=== PATIENT | female | born 1955 | race Caucasian/White ===

== ENCOUNTER → 2016-11-09 | Outpatient (CLI) | payer BC ==
[~2016-11-09] MED LIST: ASPIRIN325 MG PO; COREG 25MG TAB25 MG PO; GLUCOPHAGE 500500 MG PO; IMDUR ER TAB 3030 MG PO; INDAPAMIDE2.5 MG PO; LIPITOR TAB 2020 MG PO; LISINOPRIL10 MG PO; NAPROSYN500 MG PO; NITROSTAT 0.4100 TAB SL; PAXIL10 MG PO; PLAVIX 75 MG TA75 MG PO
== END ==
LOC: SLEEP-COR 21:30
DX: G47.33 Obstructive sleep apnea (adult) (pediatric) (principal)
CPT/HCPCS: 95810

== ENCOUNTER → 2017-05-16 | Outpatient (CLI) | payer BC ==
[~2017-05-16] VITALS: Ht 162.6 cm; Wt 111.1 kg
== END ==
LOC: CATH 06:17
DX: I25.119 Atherosclerotic heart disease of native coronary artery with unspecified angina pectoris (principal); R94.39 Abnormal result of other cardiovascular function study; I11.0 Hypertensive heart disease with heart failure; I50.32 Chronic diastolic (congestive) heart failure; E78.5 Hyperlipidemia, unspecified; E11.9 Type 2 diabetes mellitus without complications; Z95.5 Presence of coronary angioplasty implant and graft; Z98.890 Other specified postprocedural states; Z79.84 Long term (current) use of oral hypoglycemic drugs; Z79.02 Long term (current) use of antithrombotics/antiplatelets; Z79.82 Long term (current) use of aspirin; Z79.1 Long term (current) use of non-steroidal anti-inflammatories (NSAID); Z79.899 Other long term (current) drug therapy
CPT/HCPCS: 82962; C1769; J1644; J2250; J3010; J7030; Q9963